=== PATIENT | female | born 1955 | race Two or more races ===

== ENCOUNTER 2019-06-10 02:29 | Inpatient (IN) | payer BC ==
[~2019-06-10] VITALS: Ht 154.9 cm; Wt 66.0 kg
[2019-06-10] MEDS ORDERED: IPRATROPIUM 0.5 MG/2.5 ML INHA NPPB ONE (03:00)
[2019-06-10 03:18] LABS: BASOPHILS # (AUTO) 0.03 x10^3/uL (0-0.1); BASOPHILS % (AUTO) 0 % (0-1); EOSINOPHILS # (AUTO) 0.08 x10^3/uL (0-0.4); EOSINOPHILS % (AUTO) 1 % (1-7); LYMPHOCYTES % (AUTO) 16 % (22-44); MD NO; MEAN CORPUSCULAR HEMOGLOBIN 31.9 pg (27.0-34.8); MEAN CORPUSCULAR VOLUME 96.6 fL (80-100); MEAN PLATELET VOLUME 7.7 fL (7.4-10.4); MONOCYTES # (AUTO) 0.64 x10^3/uL (0.2-0.8); MONOCYTES % (AUTO) 10 % (2-9); NEUTROPHILS % (AUTO) 72 % (42-75); PLATELET COUNT 222 x10^3/uL (130-400); RED BLOOD COUNT 3.77 x10^6/uL (3.82-5.3); RED CELL DISTRIBUTION WIDTH 14.4 % (9.6-15.2)
[2019-06-10 03:29] LABS: ALANINE AMINOTRANSFERASE 21 U/L (12-78); ANION GAP 7 mmol/L (5-15); CALCIUM 8.2 mg/dL (8.5-10.1); CHLORIDE 108 mmol/L (98-107); CREATININE 0.78 mg/dL (0.55-1.02)
[2019-06-10 03:33] LABS: ALKALINE PHOSPHATASE 105 U/L (45-117); BILIRUBIN,TOTAL 0.5 mg/dL (0.2-1.0); TOTAL PROTEIN 6.8 g/dL (6.4-8.2); TROPONIN I < 0.015 ng/mL (0.000-0.045)
--- NOTE | 2019-06-10 03:34 | NUR ---
Pt amb w/ steady gait to rr w/ stand-by assist.
[2019-06-10] MEDS ORDERED: ALBUTEROL/IPRATROPIUM 2.5MG/0.5MG, 3 ML NPPB PRN (05:30)
[2019-06-10] MEDS ORDERED: POTASSIUM CHLORIDE 20 MEQ TAB.ER.PRT PO ONE (06:00)
[2019-06-10] MEDS ORDERED: POTASSIUM CHLORIDE 20 MEQ TAB.ER.PRT ONE (06:01)
--- NOTE | 2019-06-10 06:50 | NUR ---
RECEIVED REPORT FROM MARY FERNANDEZ AND ASSUMED CARE. PT ON HOSPITAL BED, BREATHING EVEN AND UNLABORED, WHILE AWAITING ROOM ASSIGNMENT.
[2019-06-10] MEDS ORDERED: ALBUTEROL/IPRATROPIUM 2.5MG/0.5MG, 3 ML NPPB SCH (07:00)
[2019-06-10] MEDS ORDERED: ALBUTEROL/IPRATROPIUM 2.5MG/0.5MG, 3 ML ONE (08:47)
[2019-06-10] MEDS ORDERED: ENALAPRILAT 1.25 MG/ML, 2ML IVPush PRN (09:00)
[2019-06-10] MEDS ORDERED: ONDANSETRON 2MG/ML, 2ML IVPush PRN (09:00)
[2019-06-10] MEDS ORDERED: ACETAMINOPHEN 325 MG TABLET PO PRN (09:00)
--- NOTE | 2019-06-10 09:00 | NUR ---
PT UOB TO BATHROOM, SOB WITH EXERTION NOTED
[2019-06-10] MEDS ORDERED: NICOTINE 14MG/24 HR PATCH.TD24 ONE (09:19)
[2019-06-10] MEDS ORDERED: methylPREDNISolone SOD SUCC 40 MG/ML ONE ×2 (09:19→14:53)
[2019-06-10] MEDS: NICOTINE 14MG/24 HR PATCH.TD24 TD SCH (09:21)
[2019-06-10] MEDS: methylPREDNISolone SOD SUCC 40 MG/ML IVPush SCH ×3 (09:22→20:50)
--- NOTE | 2019-06-10 11:01 | NUR ---
AFTER EATING BREAKFAST, PT SLEEPING
[2019-06-10] MEDS ORDERED: MONT10TA9 PO (13:01)
[2019-06-10] MEDS ORDERED: ATEN25TA PO (13:01)
[2019-06-10] MEDS ORDERED: LEVO100T5 PO (13:01)
[2019-06-10] MEDS ORDERED: SIMV20TA3 PO (13:01)
--- NOTE | 2019-06-10 13:19 | NUR ---
MEDICATIONS AND CELL PHONE RETURNED TO FAMILY AT BEDSIDE.
--- NOTE | 2019-06-10 13:34 | NUR ---
ASSISTED PT TO BATHROOM, BACK RESTING IN BED. FAMILY AT BEDSIDE
[2019-06-10] MEDS ORDERED: ACETAMINOPHEN 325 MG TABLET ONE (15:35)
--- NOTE | 2019-06-10 15:36 | NUR ---
C/O COOPER AND MEDICATED WITH TYLENOL NOTED ON MAR
--- NOTE | 2019-06-10 16:03 | NUR ---
REPORT TO LONNY FERNANDEZ. PT TO BE TRANSPORTED TO FLOOR
[2019-06-10 18:10] VITALS: BP 101/59
[2019-06-10] MEDS: ALBUTEROL/IPRATROPIUM 2.5MG/0.5MG, 3 ML NPPB SCH (20:00)
[2019-06-10 20:37] VITALS: BP 109/70
[2019-06-11 00:16] VITALS: BP 109/62
[2019-06-11] MEDS: methylPREDNISolone SOD SUCC 40 MG/ML IVPush SCH ×4 (03:18→20:40)
[2019-06-11 05:56] LABS: BASOPHILS % (AUTO) 0 % (0-1); EOSINOPHILS % (AUTO) 0 % (1-7); LYMPHOCYTES # (AUTO) 0.54 x10^3/uL (1-3.4); LYMPHOCYTES % (AUTO) 5 % (22-44); MD NO; MEAN CORPUSCULAR HEMOGLOBIN 31.6 pg (27.0-34.8); MEAN CORPUSCULAR HGB CONC 32.4 g/dL (32.4-35.8); MEAN CORPUSCULAR VOLUME 97.6 fL (80-100); MEAN PLATELET VOLUME 8.1 fL (7.4-10.4); MONOCYTES # (AUTO) 0.43 x10^3/uL (0.2-0.8); MONOCYTES % (AUTO) 4 % (2-9); NEUTROPHILS % (AUTO) 91 % (42-75); PLATELET COUNT 247 x10^3/uL (130-400); RED BLOOD COUNT 3.83 x10^6/uL (3.82-5.3); RED CELL DISTRIBUTION WIDTH 14.1 % (9.6-15.2)
[2019-06-11 06:01] LABS: ANION GAP 5 mmol/L (5-15); CHLORIDE 111 mmol/L (98-107)
[2019-06-11] MEDS: ALBUTEROL/IPRATROPIUM 2.5MG/0.5MG, 3 ML NPPB SCH ×4 (06:55→19:08)
[2019-06-11 08:44] VITALS: BP 145/69
[2019-06-11] MEDS: NICOTINE 14MG/24 HR PATCH.TD24 TD SCH (10:07)
[2019-06-11 13:45] VITALS: BP 124/65
[2019-06-11] MEDS: GUAIFENESIN ER 600 MG TABLET PO SCH (20:41)
[2019-06-11 21:02] VITALS: BP 115/69
[2019-06-12 02:32] VITALS: BP 115/69
[2019-06-12] MEDS: methylPREDNISolone SOD SUCC 40 MG/ML IVPush SCH ×2 (03:35→08:57)
[2019-06-12 06:30] VITALS: BP 109/65
[2019-06-12] MEDS: ALBUTEROL/IPRATROPIUM 2.5MG/0.5MG, 3 ML NPPB SCH ×2 (07:00→10:10)
[2019-06-12] MEDS: GUAIFENESIN ER 600 MG TABLET PO SCH (08:57)
[2019-06-12] MEDS: NICOTINE 14MG/24 HR PATCH.TD24 TD SCH (09:01)
[2019-06-12 12:17] VITALS: BP 119/61
[2019-06-12] MEDS ORDERED: GUAI600T31 PO (12:37)
[2019-06-12] MEDS ORDERED: PRED20TA PO (12:37)
== END 2019-06-12 14:29 | disposition home or self-care (01) | DRG 189 ==
LOC: ED 03:00 → EDIP 04:00 → 4EST 18:29 → DCLOUNGE 06-12 14:20
PROVIDERS: ADMIT Family Medicine; ATTEND Family Medicine
DX: J96.01 Acute respiratory failure with hypoxia (principal); J44.1 Chronic obstructive pulmonary disease with (acute) exacerbation; E03.9 Hypothyroidism, unspecified; F17.210 Nicotine dependence, cigarettes, uncomplicated; I10 Essential (primary) hypertension; Z86.73 Personal history of transient ischemic attack (TIA), and cerebral infarction without residual deficits
CPT/HCPCS: 99285; J7620; J7644; 94640; J2920; J7512